=== PATIENT | female | born 1980 | race Asian ===

== ENCOUNTER 2016-08-06 18:10 | Emergency (ER) | payer OTHER ==
[~2016-08-06] VITALS: Ht 149.9 cm; Wt 54.4 kg
== END 2016-08-06 20:27 | disposition left against medical advice (07) ==
LOC: EDP 18:10 → ED 18:10 → EDP 20:27
DX: M54.89 Other dorsalgia (principal)
CPT/HCPCS: 99281

== ENCOUNTER 2016-10-08 17:07 | Emergency (ER) | payer OTHER ==
[~2016-10-08] VITALS: Ht 149.9 cm; Wt 55.8 kg
[2016-10-08] MEDS ORDERED: GABA300C2 PO (17:38)
== END 2016-10-08 17:57 | disposition home or self-care (01) ==
LOC: ED 17:07
DX: M79.672 Pain in left foot (principal); M79.671 Pain in right foot
CPT/HCPCS: 99282

== ENCOUNTER 2016-12-22 15:45 | Emergency (ER) | payer OTHER ==
[~2016-12-22] VITALS: Ht 149.9 cm; Wt 54.4 kg
[~2016-12-22 15:45] MED LIST: GABA300C2 PO
== END 2016-12-22 18:10 | disposition home or self-care (01) ==
LOC: ED 15:45
DX: M79.672 Pain in left foot (principal)
CPT/HCPCS: 99282

== ENCOUNTER 2018-09-12 14:52 | Emergency (ER) | payer OTHER ==
[~2018-09-12] VITALS: Ht 149.9 cm; Wt 52.2 kg
[2018-09-12 15:01] VITALS: TEMP 99.1
[2018-09-12 16:10] LABS: PLATELET COUNT 249 K/uL (152-353)
[2018-09-12 16:25] LABS: POTASSIUM 4.1 mmol/L (3.6-5.2)
[2018-09-12 16:59] VITALS: BP 116/68
== END 2018-09-12 16:59 | disposition home or self-care (01) ==
LOC: ED 14:52
PROVIDERS: Emergency Medicine
DX: A08.4 Viral intestinal infection, unspecified (principal); N39.0 Urinary tract infection, site not specified
CPT/HCPCS: 36415; 80053; 81000; 81025; 82150; 83690; 85027; 99283

== ENCOUNTER 2018-10-17 07:11 | Emergency (ER) | payer OTHER ==
[~2018-10-17] VITALS: Ht 149.9 cm; Wt 54.0 kg
[2018-10-17 07:36] LABS: PLATELET COUNT 250 K/uL (152-353)
[2018-10-17 08:29] LABS: POTASSIUM 3.6 mmol/L (3.6-5.2)
[2018-10-17 08:55] VITALS: BP 119/81; TEMP 97.7
== END 2018-10-17 08:55 | disposition home or self-care (01) ==
LOC: ED 07:11
PROVIDERS: Family Medicine
DX: N39.0 Urinary tract infection, site not specified (principal)
CPT/HCPCS: 80053; 81000; 81025; 85027; 87077; 87086; 87088; 87186; 99283

== ENCOUNTER 2020-01-07 19:28 | Emergency (ER) | payer OTHER ==
[~2020-01-07] VITALS: Ht 149.9 cm; Wt 54.0 kg
[2020-01-07 20:28] VITALS: TEMP 98.9
[2020-01-07 21:01] VITALS: BP 131/76
== END 2020-01-07 21:09 | disposition home or self-care (01) ==
LOC: ED 19:28
DX: M54.5 Low back pain (principal); G89.29 Other chronic pain; M62.830 Muscle spasm of back
CPT/HCPCS: 96372; 99282; J1885

== ENCOUNTER 2020-10-06 14:24 | Emergency (ER) | payer OTHER ==
[~2020-10-06] VITALS: Ht 149.9 cm; Wt 54.0 kg
[2020-10-06 14:43] VITALS: TEMP 98.6
[2020-10-06 16:06] VITALS: BP 124/80
== END 2020-10-06 16:02 | disposition home or self-care (01) ==
LOC: ED 14:24
DX: H00.012 Hordeolum externum right lower eyelid (principal); H01.00A Unspecified blepharitis right eye, upper and lower eyelids
CPT/HCPCS: 96372; 99283; J0696; J1885